=== PATIENT | male | born 1940 | race African-American/Black ===

== ENCOUNTER 2023-08-17 22:42 | Inpatient (IN) | payer OTHER, MEDICAID ==
[2023-08-18] MEDS ORDERED: Ondansetron ODT 4 MG TAB PO PRN (00:39)
[2023-08-18] MEDS ORDERED: Ondansetron PF 4 MG/2 ML Vial IVP PRN (00:39)
[2023-08-18] MEDS ORDERED: Acetaminophen 650 MG Suppository PR PRN (00:39)
[2023-08-18 00:48] VITALS: BMI 23.5
[2023-08-18] MEDS: Sodium Chloride 0.9% 1,000 ML IV SCH (01:03)
[2023-08-18 01:15] LABS: #Basophils 0.05 10x3/uL (0.0-0.2); #Eosinphils Less than 0.03 10x3/uL (0.0-0.7); %Basophils 0.2 % (0.0-1.0); %Lymphocytes 11.3 % (21.0-51.0); %Monocytes 5.9 % (0.0-10.0); %Neutrophils 80.5 % (42.0-75.0); Hematocrit 23.8 % (42.0-52.0); Hemoglobin 7.8 g/dL (14.0-18.0); Mean Corpuscular HGB CONC 32.8 g/dL (32.0-36.0); Mean Corpuscular Hemoglobin 31.8 pg (27.0-31.0); Mean Corpuscular Volume 97.1 fL (78.0-98.0); Mean Platelet Volume 11.6 fL (7.4-10.4); Platelet Count 239 10x3/uL (130-400); RBC Distribution Width 14.7 % (11.5-14.5); Red Blood Cell (RBC) Count 2.45 mill/uL (4.70-6.10)
[2023-08-18] MEDS ORDERED: Dextrose 5% in Water 1,000 ML IV PRN (03:19)
[2023-08-18] MEDS ORDERED: Dextrose 50% Abboject 50 ML SYRINGE SLOW IVP PRN (03:19)
[2023-08-18] MEDS ORDERED: Glucagon 1 MG/ML KIT IM PRN (03:19)
[2023-08-18] MEDS ORDERED: HumaLOG 300 UNITS/3 ML VIAL SC PRN ×2 (03:19)
[2023-08-18 05:42] LABS: #Basophils 0.03 10x3/uL (0.0-0.2); #Eosinphils Less than 0.03 10x3/uL (0.0-0.7); %Basophils 0.1 % (0.0-1.0); %Lymphocytes 17.9 % (21.0-51.0); %Monocytes 7.6 % (0.0-10.0); %Neutrophils 72.2 % (42.0-75.0); Hemoglobin 6.5 g/dL (14.0-18.0); Mean Corpuscular HGB CONC 32.5 g/dL (32.0-36.0); Mean Corpuscular Hemoglobin 31.3 pg (27.0-31.0); Mean Corpuscular Volume 96.2 fL (78.0-98.0); Mean Platelet Volume 11.3 fL (7.4-10.4); Platelet Count 238 10x3/uL (130-400); RBC Distribution Width 14.6 % (11.5-14.5); Red Blood Cell (RBC) Count 2.08 mill/uL (4.70-6.10)
[2023-08-18 05:57] LABS: Lactic Acid 2.8 mmol/L (0.5-2.2)
[2023-08-18 06:05] LABS: Anion Gap 16 mmol/L (10-20); BUN (Urea Nitrogen) 62 mg/dL (8.4-25.7); Calc. Creatinine Clearance 39 mL/min (70-130); Calcium 8.6 mg/dL (7.8-10.44); Carbon Dioxide 25 mmol/L (23-31); Chloride 105 mmol/L (98-107); Estimated GFR 43; Glucose 153 mg/dL (83-110); Iron 111 ug/dL (65-175); Iron Binding Capacity, Total 269 mcg/dL (261-462); Potassium 4.8 mmol/L (3.5-5.1); Sodium 141 mmol/L (136-145)
[2023-08-18] MEDS: Morphine 4 MG/ML VIAL SLOW IVP PRN (06:30)
[2023-08-18] MEDS: Pantoprazole 80 MG in Sodium Chloride 0.9% 100 ML IVPB SCH (09:29)
[2023-08-18] MEDS ORDERED: Lidocaine 2% PF 5 ML VIAL ONE (10:22)
[2023-08-18] MEDS ORDERED: PROPOFOL 20 ML ONE ×2 (10:22→10:56)
[2023-08-18] MEDS ORDERED: EPINEPHrine 1 MG/10 ML Abboject SYRINGE ONE (11:12)
[2023-08-18] MEDS ORDERED: Ondansetron HCl/PF 4 MG/2 ML Vial IVP PRN (11:31)
[2023-08-18 19:42] LABS: Bilirubin Negative (Negative); Blood, Urine Negative (Negative); Glucose, Urine (Dipstick) Negative (Negative); Ketone, Urine Negative (Negative); Leukocyte Large (Negative); Nitrite Negative (Negative); Protein, Urine (Dipstick) Negative (Neg-Trace); pH, Urine 6.5 (5.0-9.0)
[2023-08-18 19:44] LABS: Clarity Hazy (Clear); Specific Gravity, Urine 1.012 (1.002-1.036)
[2023-08-18 19:46] LABS: Squamous Epithelial 0-3 HPF (0-3); WBC/HPF Greater than 50 HPF (0-3)
[2023-08-18 19:47] LABS: Bacteria/HPF 1+ HPF (None Seen)
[2023-08-19 04:28] LABS: Anion Gap 12 mmol/L (10-20); BUN (Urea Nitrogen) 39 mg/dL (8.4-25.7); Calc. Creatinine Clearance 57 mL/min (70-130); Calcium 8.5 mg/dL (7.8-10.44); Carbon Dioxide 22 mmol/L (23-31); Chloride 108 mmol/L (98-107); Estimated GFR 69; Glucose 86 mg/dL (83-110); Potassium 4.4 mmol/L (3.5-5.1); Sodium 138 mmol/L (136-145)
[2023-08-19 04:33] LABS: #Basophils 0.04 10x3/uL (0.0-0.2); %Basophils 0.3 % (0.0-1.0); %Eosinophils 0.9 % (0.0-10.0); %Lymphocytes 24.9 % (21.0-51.0); %Monocytes 8.4 % (0.0-10.0); %Neutrophils 63.4 % (42.0-75.0); Hematocrit 22.1 % (42.0-52.0); Hemoglobin 6.9 g/dL (14.0-18.0); Mean Corpuscular HGB CONC 31.2 g/dL (32.0-36.0); Mean Corpuscular Hemoglobin 29.9 pg (27.0-31.0); Mean Corpuscular Volume 95.7 fL (78.0-98.0); Mean Platelet Volume 12.2 fL (7.4-10.4); Platelet Count 152 10x3/uL (130-400); RBC Distribution Width 17.6 % (11.5-14.5); Red Blood Cell (RBC) Count 2.31 mill/uL (4.70-6.10)
[2023-08-19] MEDS: Levothyroxine Sodium 112 MCG TAB PO SCH (06:15)
[2023-08-19] MEDS: Levothyroxine Sodium 25 MCG TAB PO SCH (06:15)
[2023-08-19] MEDS ORDERED: Pantoprazole 80 MG, Admixture Fee 1 EACH in Sodium Chloride 0.9% 100 ML IVPB SCH (07:15)
[2023-08-19] MEDS: Amlodipine 5 MG TAB PO SCH (08:26)
[2023-08-19] MEDS: Divalproex Sodium 250 MG ER.TAB PO SCH (08:26)
[2023-08-19] MEDS: Gabapentin 300 MG CAP PO SCH (08:27)
[2023-08-19] MEDS: cefTRIAXone\\ROCEPHIN 1 GM in Sodium Chloride 0.9% 100 ML IVPB SCH (13:54)
[2023-08-19] MEDS: Atorvastatin Calcium 40 MG TAB PO SCH (20:27)
[2023-08-19] MEDS: Pantoprazole 40 MG VIAL IVP SCH (20:27)
[2023-08-20 05:10] LABS: Hematocrit 22.2 % (42.0-52.0); Hemoglobin 6.9 g/dL (14.0-18.0)
[2023-08-20] MEDS: Acetaminophen 325 MG TAB PO PRN (09:28)
[2023-08-20 15:12] LABS: Hematocrit 23.2 % (42.0-52.0); Hemoglobin 7.3 g/dL (14.0-18.0); Platelet Count 218 10x3/uL (130-400)
[2023-08-20 16:28] VITALS: BP 110/57; TEMP 98.5
== END 2023-08-20 19:38 | DRG 378 ==
LOC: IMCU/EMU 23:56 → T4-B 08-19 10:11
PROVIDERS: ADMIT Student in an Organized Health Care Education/Training Program; ATTEND Hospitalist
PROC: 0W3P8ZZ Control Bleeding in Gastrointestinal Tract, Via Natural or Artificial Opening Endoscopic (ICD-10-PCS; principal; 2023-08-18)
PROC: 3E033XZ Introduction of Vasopressor into Peripheral Vein, Percutaneous Approach (ICD-10-PCS; 2023-08-18)
PROC: 30233N1 Transfusion of Nonautologous Red Blood Cells into Peripheral Vein, Percutaneous Approach (ICD-10-PCS; 2023-08-18)
DX: K25.4 Chronic or unspecified gastric ulcer with hemorrhage (principal); D62 Acute posthemorrhagic anemia; E87.20 Acidosis, unspecified; N17.9 Acute kidney failure, unspecified; I69.354 Hemiplegia and hemiparesis following cerebral infarction affecting left non-dominant side; N39.0 Urinary tract infection, site not specified; K92.0 Hematemesis; E11.9 Type 2 diabetes mellitus without complications; G47.33 Obstructive sleep apnea (adult) (pediatric); I11.0 Hypertensive heart disease with heart failure; E03.9 Hypothyroidism, unspecified; Z79.4 Long term (current) use of insulin; Z79.890 Hormone replacement therapy; Z98.890 Other specified postprocedural states; I50.9 Heart failure, unspecified; Z79.82 Long term (current) use of aspirin; Z79.899 Other long term (current) drug therapy
CPT/HCPCS: 36415; 36416; 36430; 71045; 80048; 80053; 81001; 82728; 83540; 83550; 83605; 83690; 84484; 85014; 85018; 85025; 85610; 85730; 86850; 86900; 86901; 93005; 96374; C9113; J0171; J0696; J2001; J2270; J2704; J3490; J7050; P9016